=== PATIENT | female | born 1960 | race Caucasian/White ===

== ENCOUNTER 2018-09-08 11:02 | Outpatient (CLI) | payer OTHER ==
--- NOTE | 2018-09-08 11:36 | MMO ---
Bilateral MAMMO Bilat Screen [facility]. CLINICAL HISTORY: Patient is 58 years old and is seen for screening. The patient has the following family history of breast cancer: mother, at age 75. The patient has no personal history of cancer. VIEWS: The views performed were: bilateral craniocaudal with tomosynthesis and bilateral mediolateral oblique with tomosynthesis. MAMMOGRAM FINDINGS: There are scattered fibroglandular densities. There are benign appearing calcifications seen in both breasts. There are no suspicious masses, suspicious calcifications, or new areas of architectural distortion. IMPRESSION: THERE IS NO MAMMOGRAPHIC EVIDENCE OF MALIGNANCY. A ROUTINE FOLLOW-UP MAMMOGRAM IN 1 YEAR IS RECOMMENDED. THE RESULTS OF THIS EXAM WERE SENT TO THE PATIENT. ACR BI-RADS Category 2 - Benign finding MAMMOGRAPHY NOTE: 1. A negative mammogram report should not delay a biopsy if a dominant of clinically suspicious mass is present. 2. Approximately 10% to 15% of breast cancers are not detected by mammography. 3. Adenosis and dense breasts may obscure an underlying neoplasm.
== END 2018-09-08 11:03 | disposition home or self-care (01) ==
LOC: BICMAMMO 11:02
PROVIDERS: ATTEND Family Medicine
DX: Z12.31 Encounter for screening mammogram for malignant neoplasm of breast (principal); Z80.3 Family history of malignant neoplasm of breast
CPT/HCPCS: 77063; 77067

== ENCOUNTER 2021-11-04 08:49 | Outpatient (CLI) | payer BC ==
[2021-11-04] MEDS ORDERED: Iopamidol 370 76% 100 ML VIAL ONE (14:16)
== END 2021-11-04 08:50 | disposition home or self-care (01) ==
LOC: CT 08:49
PROVIDERS: ATTEND Surgery
DX: C50.411 Malignant neoplasm of upper-outer quadrant of right female breast (principal); N63.10 Unspecified lump in the right breast, unspecified quadrant; R59.0 Localized enlarged lymph nodes
CPT/HCPCS: 71260; 74178; 78306; 82565; A9503; Q9967

== ENCOUNTER 2022-06-17 08:58 | Day surgery (SDC) | payer BC ==
[2022-06-16 07:05] VITALS: BMI 40.0
[2022-06-17 09:46] VITALS: BP 112/68
== END 2022-06-17 11:40 | disposition home or self-care (01) ==
LOC: CT 08:58
PROVIDERS: ATTEND Surgery
PROC: 07B53ZX Excision of Right Axillary Lymphatic, Percutaneous Approach, Diagnostic (ICD-10-PCS; principal; 2022-06-17)
DX: R59.0 Localized enlarged lymph nodes (principal); C50.411 Malignant neoplasm of upper-outer quadrant of right female breast; Z79.82 Long term (current) use of aspirin; Z79.899 Other long term (current) drug therapy
CPT/HCPCS: 71250; 77012; 88305; 88333; 88342

== ENCOUNTER 2023-09-21 09:21 | Outpatient (CLI) | payer BC ==
[2023-09-21] MEDS ORDERED: Iopamidol 370 76% 100 ML VIAL ONE (10:53)
== END 2023-09-21 09:22 | disposition home or self-care (01) ==
LOC: BICCT 09:21
PROVIDERS: ATTEND Physician Assistant Medical
DX: R93.5 Abnormal findings on diagnostic imaging of other abdominal regions, including retroperitoneum (principal); K31.89 Other diseases of stomach and duodenum
CPT/HCPCS: 74170; Q9967

== ENCOUNTER 2025-01-14 11:30 | Outpatient (CLI) | payer BC | END 2025-01-14 11:31 | disposition home or self-care (01) | LOC: SCSBT 11:30 | PROVIDERS: ATTEND Internal Medicine Hematology & Oncology | DX: C50.811 Malignant neoplasm of overlapping sites of right female breast (principal); T38.6X5A Adverse effect of antigonadotrophins, antiestrogens, antiandrogens, not elsewhere classified, initial encounter; M85.851 Other specified disorders of bone density and structure, right thigh; M85.852 Other specified disorders of bone density and structure, left thigh; Z79.818 Long term (current) use of other agents affecting estrogen receptors and estrogen levels | CPT/HCPCS: 77080 ==